=== PATIENT | male | born 1990 | race Caucasian/White ===

== ENCOUNTER 2021-04-18 09:18 | Emergency (ER) | payer OTHER ==
[2021-04-18] MEDS ORDERED: MEDROL 4MG DOSEP4 MG PO (13:08)
== END 2021-04-18 13:26 | disposition home or self-care (01) ==
LOC: FER 09:18
DX: M50.322 Other cervical disc degeneration at C5-C6 level (principal); M50.323 Other cervical disc degeneration at C6-C7 level; M51.34 Other intervertebral disc degeneration, thoracic region
CPT/HCPCS: 72125; 72128; 72131